=== PATIENT | male | born 1990 | race Caucasian/White ===

== ENCOUNTER 2018-07-21 11:26 | Emergency (ER) | payer BC, OTHER ==
[2018-07-21] MEDS ORDERED: Ketorolac INJ* 30 MG/ML 1 ML VIAL IM ONE (12:34)
--- NOTE | 2018-07-21 12:40 | UC ---
HPI Febrile Illness - HPI Summary HPI Summary: The patient is a 28-year-old male with a 3 to four-day history of severe myalgias and arthralgias. She had with a severe headache. He has had a rare cough. He has nausea. His had no vomiting or diarrhea. At the onset of the symptoms he had some epigastric pain that radiated through to his back. The pain has resolved. As any urinary symptoms. He has not had a rash. Any recent tick bite. He is not been any recent travel. He has no family members with similar symptoms. He is denying any sore throat. He has no runny nose. - History of Current Complaint Chief Complaint: UCGeneralIllness Time Seen by Provider: 07/21/18 12:24 Hx Obtained From: Patient Onset/Duration: Started Days Ago Timing: Constant Initial Severity: Severe Current Severity: Severe Pain Intensity: 10 Pain Scale Used: 0-10 Numeric Associated Signs and Symptoms: Arthralgia, Chills, Cough - very rare, Headache, Joint Pain, Myalgia, Nausea - Allergy/Home Medications Allergies/Adverse Reactions: Allergies Allergy/AdvReac Type Severity Reaction Status Date / Time No Known Allergies Allergy Verified 07/21/18 11:59 Home Medications: Home Medications Acetaminophen [Non-Aspirin Pain Relief] 800 mg PO ONCE PRN 07/21/18 [History Confirmed 07/21/18] PMH/Surg Hx/FS Hx/Imm Hx Previously Healthy: Yes - Surgical History Surgical History: None - Family History Known Family History: Positive: Hypertension - Social History Alcohol Use: Occasionally Substance Use Type: None Smoking Status (MU): Never Smoked Tobacco Review of Systems Constitutional: Fever, Chills, Fatigue Skin: Negative Eyes: Negative ENT: Negative Respiratory: Negative Cardiovascular: Negative Gastrointestinal: Negative Genitourinary: Negative Motor: Negative Neurovascular: Negative Musculoskeletal: Arthralgia, Myalgia Neurological: Headache Psychological: Negative Is Patient Immunocompromised?: No All Other Systems Reviewed And Are Negative: Yes Physical Exam Triage Information Reviewed: Yes Appearance: Well-Appearing, No Pain Distress, Well-Nourished Vital Signs: Initial Vital Signs Temp 96.3 F 07/21/18 11:54 Pulse 79 07/21/18 11:54 Resp 18 07/21/18 11:54 BP 124/81 07/21/18 11:54 Pulse Ox 99 07/21/18 11:54 Vital Signs Reviewed: Yes Eye Exam: Normal Eyes: Positive: Conjunctiva Clear ENT: Positive: Hearing grossly normal, Pharynx normal, TMs normal, Sinus tenderness. Negative: Pharyngeal erythema, Nasal congestion, Nasal drainage, TM bulging, TM dull, TM red, Tonsillar swelling, Tonsillar exudate, Trismus, Hoarse voice, Dental tenderness Dental Exam: Normal Neck: Positive: Supple, Nontender, No Lymphadenopathy Respiratory: Positive: Lungs clear, Normal breath sounds, No respiratory distress, No accessory muscle use Cardiovascular: Positive: RRR, No Murmur Abdomen Description: Positive: Nontender, No Organomegaly, Soft. Negative: CVA Tenderness (R), CVA Tenderness (L), Distended, Guarding Bowel Sounds: Positive: Present Musculoskeletal: Positive: ROM Intact, No Edema Neurological: Positive: Alert Psychological: Positive: Normal Response To Family Skin Exam: Normal Diagnostics - Laboratory Diagnostic Studies Completed/Ordered: urine + bili and urobilinogen. U/S hepatomegaly - Radiology No standard instances Xray Interpretation: No Acute Changes - CXR Neg Radiology Interpretation Completed By: Radiologist Re-Evaluation - Re-Evaluation First Eval Change: Improved Course/Dx - Diagnoses Clinic Provider Diagnoses: febrile illness. suspect viral illness. hepatomegaly Discharge - Sign-Out/Discharge Documenting (check all that apply): Patient Departure All imaging exams completed and their final reports reviewed: Yes - Discharge Plan Condition: Stable Disposition: HOME Patient Education Materials: Viral Syndrome (ED) Forms: *Work Release Referrals: Miguel Angel Ko MD [Primary Care Provider] - 2 Days Additional Instructions: rest fluids aleve 2 pills twice daily with food TO ER FOR NEW OR WORSENING SYMPTOMS you liver is enlarged blod work pending including hepatitis tests as well as liver function - Billing Disposition and Condition Condition: STABLE Disposition: Home
--- NOTE | 2018-07-21 13:16 | RAD ---
HISTORY: pain/fever COMPARISONS: None TECHNIQUE: Multiple transverse and longitudinal ultrasound images were obtained of the right upper quadrant of the abdomen using grayscale and color Doppler imaging. FINDINGS: LIVER: The liver is diffusely echogenic and coarse in echotexture, with decreased acoustic transmission. The liver measures 20.5 cm in long axis. There is focal fatty sparing along the gallbladder fossa.. There is normal hepatopedal flow of the portal vein on Doppler imaging. BILIARY TREE: There is no intrahepatic or extrahepatic biliary dilatation. The common duct measures 0.3 cm. GALLBLADDER: The gallbladder is well-visualized. There is no cholelithiasis, gallbladder wall thickening, pericholecystic fluid, or sonographic Schultz sign. PANCREAS: The head of the pancreas is unremarkable. The tail of the pancreas is not well visualized secondary to overlying bowel gas. RIGHT KIDNEY: The right kidney is normal in shape, size, contour, and echogenicity. There is no hydronephrosis or nephrolithiasis. The right kidney measures 14.6 x 4.2 x 5.6 cm. AORTA AND IVC: The aorta and IVC are unremarkable. FLUID: There are no pleural effusions. There is no free fluid within the hepatorenal recess. OTHER FINDINGS: None. IMPRESSION: HEPATOMEGALY WITH FATTY INFILTRATION OF THE LIVER
--- NOTE | 2018-07-21 13:17 | RAD ---
HISTORY: fever/rare cough COMPARISONS: March 23, 2009 VIEWS: 4: Frontal dual-energy and lateral views of the chest. FINDINGS: CARDIOMEDIASTINAL SILHOUETTE: The cardiomediastinal silhouette is normal. LACEY: The lacey are normal. PLEURA: The costophrenic angles are sharp. No pleural abnormalities are noted. LUNG PARENCHYMA: The lungs are clear. ABDOMEN: The upper abdomen is clear. There is no subphrenic gas. BONES AND SOFT TISSUES: No bone or soft tissue abnormalities are noted. OTHER: None. IMPRESSION: NO ACTIVE CARDIOPULMONARY DISEASE.
[2018-07-21 13:56] VITALS: BP 120/79
[2018-07-21 18:32] LABS: ABS Basophils 0 10^3/ul (0-0.2); ABS Eosinophils 0.1 10^3/ul (0-0.6); ABS Lymphocytes 1.5 10^3/ul (1.0-4.8); ABS Monocytes 0.8 10^3/ul (0-0.8); ABS Neutrophils 3.4 10^3/ul (1.5-7.7); ABS Nucleated RBC 0 10^3/ul; Eosinophil % 1.2 % (0-6); Hematocrit 47 % (42-52); Hemoglobin 16.6 g/dl (14.0-18.0); Lymphocyte % 25.4 % (25-47); Mean Corpuscular HGB Conc 35 g/dl (31-36); Mean Corpuscular Hemoglobin 31 pg (27-31); Mean Corpuscular Volume 87 fL (80-94); Mean Platelet Volume 9.3 um3 (7.4-10.4); Nucleated Red Blood Cells % 0.8; Platelet Count 174 10^3/ul (150-450); Red Blood Count 5.39 10^6/ul (4.00-5.40); Red Cell Distribution Width 13 % (10.5-15); White Blood Count 5.7 10^3/ul (3.5-10.8)
[2018-07-21 18:49] LABS: EGFR Non-African American 103.1 (>60)
--- NOTE | 2018-07-22 10:29 | UC ---
- Progress Note Progress Note: Blood work from July 21, 2018 came back showing slightly elevated total bilirubin alkaline phosphatase ALT and AST. Sedimentation rate and the percentage of monocytes were also elevated. Nursing to call patient inform him of the labs and if the patient is feeling well he can follow up with his primary care doctor about these lab values if he is feeling ill he should get reevaluated in the emergency department. Re-Evaluation - Re-Evaluation First Eval Change: Improved Discharge - Sign-Out/Discharge Documenting (check all that apply): Patient Departure All imaging exams completed and their final reports reviewed: Yes - Discharge Plan Condition: Stable Disposition: HOME Patient Education Materials: Viral Syndrome (ED) Forms: *Work Release Referrals: Miguel Angel Ko MD [Primary Care Provider] - 2 Days Additional Instructions: rest fluids aleve 2 pills twice daily with food TO ER FOR NEW OR WORSENING SYMPTOMS you liver is enlarged blod work pending including hepatitis tests as well as liver function - Billing Disposition and Condition Condition: STABLE Disposition: Home
== END 2018-07-21 13:58 | disposition home or self-care (01) ==
LOC: UCEAST 11:26
DX: R50.9 Fever, unspecified (principal); R16.0 Hepatomegaly, not elsewhere classified; M79.10 Myalgia, unspecified site; R51 Headache; R05 Cough; R11.0 Nausea; R10.13 Epigastric pain; M25.50 Pain in unspecified joint; R53.83 Other fatigue
CPT/HCPCS: 36415; 71046; 76705; 80053; 81003; 85025; 85652; 86308; 86618; 86703; 86706; 86709; 86803; 87340; 96372; 99201; G0463; J1885